=== PATIENT | female | born 1995 ===

== ENCOUNTER 2017-01-27 08:41 | Day surgery (SDC) | payer OTHER ==
[2017-01-24 15:53] VITALS: BMI 34.7
[2017-01-27 09:21] VITALS: BP 118/66; PULSE 82; TEMP 98.7
== END 2017-01-27 10:30 | disposition home or self-care (01) ==
LOC: JASU-SURG 08:41
PROVIDERS: ATTEND Surgery
PROC: [UNRECOGNIZED PROCEDURE] (principal; 2017-01-27)
DX: Z53.8 Procedure and treatment not carried out for other reasons (principal)
CPT/HCPCS: 84703